=== PATIENT | male | born 1995 | race Caucasian/White ===

== ENCOUNTER 2022-04-03 07:26 | Emergency (ER) | payer OTHER, SELFPAY ==
[2022-04-03 07:29] VITALS: BP 125/77; PULSE 60; RESP 20; TEMP 36.4; O2SAT 99
--- NOTE | 2022-04-03 07:38 | ED.URI ---
HPI - URI/Sore Throat General Chief Complaint: Upper Respiratory Infection Stated Complaint: Throat Issues, Pain with Swelling Time Seen by Provider: 04/03/22 07:28 Source: patient and RN notes reviewed Mode of arrival: ambulatory Limitations: no limitations History of Present Illness HPI Narrative: This is a 26 year old male who present for evaluation of sore throat. He states he has been having sore throat for 2 days and his throat pain has worsened over past 12 hours. He has also noticed swelling to his uvula this morning. This swelling is causing him to gag. He also reports cough . He states on he developed nausea, vomiting and diarrhea, but these symptoms only last 12 hours. He thought he had food poisoning because he denies any sick contacts. He also denies fever or chills. He reports having negative covid test on . MD elicited complaint: sore throat Related Data Allergies Allergy/AdvReac Type Severity Reaction Status Date / Time cefprozil Allergy Unknown facial Verified 04/03/22 07:41 swelling Cephalosporins Allergy Unknown Unknown Verified 04/03/22 07:41 Review of Systems Review of Systems: All systems reviewed & are unremarkable except as noted in HPI and below Constitutional: Constitutional: Denies chills, Denies fatigue and Denies fever(s) ENT: Reports dizziness, Denies epistaxis, Denies nasal congestion and Reports sore throat Cardiovascular: Cardiovascular: Denies chest pain and Denies rapid heart rate Respiratory: Respiratory: Denies chest congestion, Reports cough and Denies dyspnea Gastrointestinal: Gastrointestinal: Denies abdominal pain, Reports diarrhea, Reports nausea and Reports vomiting PMFSH Past Medical History Medical History Patient denies medical problems Surgical History Surgical History No pertinent past surgical history Family History Family History Grandparent Diabetes mellitus Father Hypertension Family history of cardiovascular disease Social History Social History Smoking status: Never smoker Alcohol intake: current Substance use: never Exam Const: General: no acute distress Nutritional Appearance: well nourished Orientation/consciousness: patient oriented x3 Limitations: no limitations HENMT: Ears: external ears normal and TM's normal bilaterally Face and sinus: normal facial exam Mouth: Yes lip normal and Yes moist mucous membranes Throat: uvula midline (but edematous) Eyes: Pupils: Equal, round and reactive pupils present EOM: EOMs intact bilaterally Chest: Chest palpation & inspection: normal inspection of the chest Resp: Effort & Inspection: normal respiratory effort Auscultation: clear to auscultation bilaterally and breath sounds present Cardio: Rate: regular rate Rhythm: regular rhythm Heart sounds: no murmurs GI: GI Palp: Yes Soft to palpation, No Tenderness to palpation present (GI), No Guarding due to palpation present (GI) and No Rigid due to palpation Auscultation: normal bowel sounds Back/Spine/Pelvis: Back: no CVA tenderness Skin: General skin exam: normal color Rashes: no rashes Wounds: no wounds Neuro: General: patient oriented x3, moves all extremities and CN's II-XI intact bilaterally Extrem: General: normal to inspection Psych: Mental Status: mental status grossly normal Affect: normal affect Attitude: cooperative Course Reevaluation(s) Reevaluation #1: Patient was found to have strep causing uvulitis. HE was given dose of bicillin to treat. HE denies any other questions or concerns. Date: 04/03/22 Time: 09:21 Vital Signs Vital signs: Vital Signs Temperature 97.5 F L 04/03/22 07:29 Pulse Rate 60 04/03/22 07:29 Respiratory Rate 20 04/03/22 07:29 Bl
[2022-04-03] MEDS: KETOROLAC (*BKC) 60 MG/2 ML VIAL IM (07:52)
[2022-04-03 08:07] VITALS: O2SAT 99
[2022-04-03 08:30] LABS: Influenza A QL RT-PCR Negative (Negative); Influenza B QL RT-PCR Negative (Negative); SARS-CoV-2 RNA PCR Negative
[2022-04-03] MEDS: PENICILLIN G BENZATHINE 1,200,000 UNITS/2 ML SYRINGE 1200000 UNITS IM (08:39)
[2022-04-03 08:42] LABS: Monoscreen Negative (Negative); Negative Monotest Control Negative (Negative); Positive Monotest Control Positive (Positive)
[2022-04-03 09:42] VITALS: BP 134/76; PULSE 60; RESP 18; O2SAT 98
== END 2022-04-03 09:43 | disposition home or self-care (01) ==
PROVIDERS: Emergency Provider General Practice
DX: J02.0 Streptococcal pharyngitis (principal); K12.2 Cellulitis and abscess of mouth
CPT/HCPCS: 36415; 86308; 87502; 87880; 96372; 99284; C9803; J0561; J1100; J1885; U0003; U0005

== ENCOUNTER 2022-05-30 09:41 | Emergency (ER) | payer OTHER, SELFPAY ==
--- NOTE | ~2022-05-30 | XR_ITS ---
XR hip LT min 2V 05/30/2022 10:45 Indication: Left hip and buttock pain Procedure: 2 views left hip Comparison: No prior studies for comparison. Findings: There is anatomic alignment. No fracture, subluxation or dislocation. No significant soft t issue abnormality. No foreign bodies. Impression: 1: No acute bone or joint abnormality. Reviewed, dictated and finalized at location A. Impression: 1: No acute bone or joint abnormality.
[2022-05-30 09:50] VITALS: BP 134/78; PULSE 77; RESP 20; TEMP 36.8; O2SAT 97
[2022-05-30 10:14] VITALS: O2SAT 99
[2022-05-30 10:15] VITALS: O2SAT 99
[2022-05-30] MEDS: ACETAMINOPHEN 325 MG TABLET 650 MG PO (10:25)
--- NOTE | 2022-05-30 10:29 | ED.BACK ---
HPI - Back Pain/Injury General Chief Complaint: Back Pain/Injury Stated Complaint: Back pain Time Seen by Provider: 05/30/22 10:09 History of Present Illness HPI Narrative: Patient is a 26-year-old male here for evaluation of left hip pain for the past day. Patient states he was flexed forward at the hips, lifting at the gym, and when he came up to catch the weight, he felt a pain in his left hip. States the pain is sharp and shooting in nature, originates in his left glute and occasionally will radiate around the front into his left anterior thigh and also superiorly up his left back. The pain has been intermittent in nature ever since, worse when he sits up in bed and also worse when he walks. He is able to walk although he states it is very painful. Has taken ibuprofen with mild relief. Denies any weakness in his legs, numbness or tingling. incontinence or retention of bowel or bladder. Related Data Allergies Allergy/AdvReac Type Severity Reaction Status Date / Time cefprozil Allergy Unknown facial Verified 04/03/22 07:41 swelling Cephalosporins Allergy Unknown Unknown Verified 04/03/22 07:41 Review of Systems Review of Systems: Gen. Denies fevers or chills Eyes: Denies eye pain or visual change ENT: Denies congestion Respiratory: Denies shortness of breath or cough CV: Denies chest pain or palpitations GI: Denies abdominal pain nausea, emesis or diarrhea : denies burning, urgency, frequency or hematuria Musculoskeletal: Reports right hip/glute pain. Neuro: Denies numbness, tingling, weakness or focal weakness Skin: Denies rash Except as documented, all other systems reviewed and negative [facility] Past Medical History Medical History Patient denies medical problems Surgical History Surgical History No pertinent past surgical history Family History Family History Grandparent Diabetes mellitus Father Hypertension Family history of cardiovascular disease Social History Social History Smoking status: Never smoker Alcohol intake: current Substance use: never Exam Narrative: APPEARANCE: Well appearing, no pain in distress, well-nourished. Head: Normocephalic and atraumatic. EYES: PERRLA/EOMI, conjunctivae clear NOSE: No nasal drainage EARS: External ear normal in appearance THROAT: Oropharynx is clear. Mucous membranes are moist. NECK: Supple. No adenopathy, no masses. RESPIRATORY: Airway patent, respirations nonlabored. Clear to auscultation bilaterally, no rales, rhonchi, wheezing. CARDIOVASCULAR: 2+ DP and PT pulses bilaterally. Regular rate and rhythm without murmurs, rubs, or gallops. ABDOMINAL: Normoactive bowel sounds. Soft, nontender, nondistended. No rebound tenderness or guarding. MUSCULOSKELETAL: No bony tenderness to palpation of left hip. Straight leg raise positive on the left. Able to flex bilateral hips and knees against gravity. Reports pain in L glute with passive external and internal rotation of hip. ISABEL positive. Full ROM in bilateral feet. No midline tenderness along C, T or L spine. No edema. NEURO: Normal speech. No focal neurologic deficits. SKIN: Skin is warm and dry. No rashes. PSYCHIATRIC: Normal affect/mood. Course Vital Signs Vital signs: Vital Signs Temperature 98.3 F 05/30/22 09:50 Pulse Rate 77 05/30/22 09:50 Respiratory Rate 20 05/30/22 09:50 Blood Pressure 134/78 05/30/22 09:50 Pulse Oximetry 97 05/30/22 09:50 Oxygen Delivery Room Air 05/30/22 09:50 Temperature 98.3 F 05/30/22 09:50 Pulse Rate 62 05/30/22 11:30 Respiratory Rate 18 05/30/22 11:30 Blood Pressure 137/94 H 05/30/22 11:30 Pulse Oximetry 99 05/30/22 11:30 Oxygen Delivery Room Air 05/30/22 09:50 MDM - Back Jonathan
[2022-05-30 10:54] VITALS: O2SAT 98
[2022-05-30 11:00] VITALS: O2SAT 98
[2022-05-30] MEDS: CYCLOBENZAPRINE HCL 10 MG TABLET PO (11:26)
[2022-05-30 11:30] VITALS: BP 137/94; PULSE 62; RESP 18; O2SAT 99
== END 2022-05-30 11:30 | disposition home or self-care (01) ==
PROVIDERS: Emergency Provider Emergency Medicine
DX: M25.552 Pain in left hip (principal)
CPT/HCPCS: 73502; 99283; A9270